=== PATIENT | male | born 1965 | race African-American/Black ===

== ENCOUNTER 2018-01-25 02:27 | Emergency (ER) | payer BC, OTHER ==
[2018-01-25 04:34] LABS: Bilirubin Negative (Negative); Blood, Urine Negative (Negative); Clarity CLEAR (Clear); Glucose, Urine (Dipstick) Negative (Negative); Leukocyte Negative (Negative); Nitrite Negative (Negative); Protein, Urine (Dipstick) Negative (Neg-Trace); Specific Gravity, Urine 1.009 (1.002-1.036); Urobilinogen 0.2 mg/dL (0.2-1.0); pH, Urine 5.5 (5.0-9.0)
[2018-01-25] MEDS ORDERED: Ketorolac Tromethamine 30 MG/ML VIAL ONE (06:08)
--- NOTE | 2018-01-25 09:13 | RAD ---
LEFT HIP 2 VIEWS: History Left hip pain. FINDINGS: No comparison. Mild joint space narrowing, osteophytosis, and subchondral sclerosis. Femoral head c ontour is maintained. No acute fracture, dislocation, or aggressive osseous erosions. IMPRESSION: Mild osteoarthritic changes left hip. POS: [facility]
--- NOTE | 2018-01-25 09:14 | RAD ---
LUMBAR SPINE 3 VIEWS: HISTORY: Low back pain. FINDINGS: There are 5 lumbar-type vertebrae. Pedicles are intact. Mild leftward convex curvature on the front al view. Vertebral body height and AP alignment are maintained. Mild osteophytosis throughout the v ertebral bodies and facets. IMPRESSION: Mild lumbar spondylosis. No evidence of compression fracture. POS: [facility]
== END 2018-01-25 06:48 | disposition home or self-care (01) ==
LOC: ERS 02:27
DX: M46.96 Unspecified inflammatory spondylopathy, lumbar region (principal)
CPT/HCPCS: 72100; 81003; 96374; J1885